=== PATIENT | male | born 1965 | race Caucasian/White ===

== ENCOUNTER 2017-12-02 11:20 | Emergency (ER) | payer OTHER | END 2017-12-02 12:53 | disposition home or self-care (01) | LOC: FTE 11:20 | DX: M25.552 Pain in left hip (principal) | CPT/HCPCS: 73502; 73510; 99284-25 ==

== ENCOUNTER 2018-10-14 17:24 | Emergency (ER) | payer OTHER ==
[2018-10-14] MEDS: IBUPROFEN 600 MG TAB PO (20:06)
== END 2018-10-14 21:14 | disposition home or self-care (01) ==
LOC: FTE 17:24
DX: S20.211A Contusion of right front wall of thorax, initial encounter (principal); W18.2XXA Fall in (into) shower or empty bathtub, initial encounter; Y92.9 Unspecified place or not applicable
CPT/HCPCS: 71100; 99283-25